=== PATIENT | male | born 2000 | race Caucasian/White ===

== ENCOUNTER 2020-10-15 07:35 | Inpatient (IN) ==
[2020-10-15] MEDS ORDERED: *HR* LORazepam 1 MG TABLET PO ONE (07:38)
[2020-10-15 08:31] LABS: Basophils # 0.1 K/mcL (0.0-0.2); Basophils % 0.3 %; Hematocrit 49.2 % (37.5-50.1); Hemoglobin 16.7 g/dL (12.9-16.9); Immature Granulocytes % 0.3 % (0-4); Lymphocytes # 1.3 K/mcL (0.6-4.6); Lymphocytes % 8.3 %; Mean Corpuscular HGB Conc 33.9 g/dL (31.6-35.5); Mean Corpuscular Hemoglobin 30.9 pg (28.0-33.3); Mean Corpuscular Volume 91.1 fL (83.0-100.0); Mean Platelet Volume 9.5 fL (9.4-12.4); Monocytes # 1.5 K/mcL (0.0-1.3); Monocytes % 9.5 %; Neutrophils # 12.8 K/mcL (1.6-8.9); Platelet Count 215 K/mcL (140-400); Segmented Neutrophils % 81.6 %; White Blood Count 15.7 K/mcL (4.3-11.1)
[2020-10-15 08:47] LABS: Amphetamine Screen,Urine Positive ng/mL (Cutoff=1000); Barbiturate Screen,Urine Negative ng/mL (Cutoff=200); Benzodiazepines Screen,Urine Negative ng/mL (Cutoff=200); Cannabinoid Screen,Urine Positive ng/mL (Cutoff = 50); Cocaine Screen,Urine Negative ng/mL (Cutoff= 300); Opiate Screen,Urine Negative ng/mL (Cutoff=300); Phencyclidine Screen,Urine Negative ng/mL (Cutoff=25)
[2020-10-15 08:50] LABS: Acetaminophen < 10 mcg/mL (10-20); BUN/Creatinine Ratio 8 (6-26); Blood Urea Nitrogen 8 mg/dL (6-20); Calcium 9.9 mg/dL (8.6-10.3); Carbon Dioxide 25 mEq/L (23-29); Chloride 102 mEq/L (98-107); Chol/HDL Ratio 2.1 (0-4.9); Cholesterol 133 mg/dL (< 200); Ethanol < 10 mg/dL (Less than 10); Glucose 98 mg/dL (70-105); HDL Cholesterol 62 mg/dL (40-59); LDL Cholesterol,Calculated 59 mg/dL (< 100); Osmolality,Calculated 282 (280-300); Potassium 3.3 mEq/L (3.5-5.1); Salicylate < 2.5 mg/dL (15.0-30.0); Sodium 137 mEq/L (136-145); Triglycerides 58 mg/dL (< 150); eGFR For African Americans > 60 (> 60); eGFR For Non-African Americans > 60 (> 60)
[2020-10-15 09:14] LABS: Bilirubin,Urine Negative (Negative); Blood,Urine Small (Negative); Clarity,Urine Turbid (Clear); Color,Urine Light-Orange (Yellow); Glucose,Urine (UA) Normal (Normal); Granular Casts,Urine Moderate per lpf (None Seen); Hyaline Casts,Urine Many per lpf (None Seen); Ketones,Urine 10 mg/dL (Negative); Leukocyte Esterase,Urine Negative (Negative); Mucus,Urine Few per lpf (None-Few); Nitrite,Urine Negative (Negative); PH,Urine 6.5 pH Units (5.0-8.0); Protein,Urine 70 mg/dL (Neg-Trace); Renal Epithelial Cells,Urine Few per hpf (None-Few); Specific Gravity,Urine 1.027 (1.010-1.025); White Blood Cell Casts,Urine Few per lpf (None Seen)
[2020-10-15] MEDS ORDERED: *HR* LORazepam 2 MG/ML VIAL IVP ONE (09:25)
[2020-10-15] MEDS ORDERED: *HR* LORazepam 2 MG/ML VIAL ONE (09:27)
[2020-10-15] MEDS ORDERED: Ziprasidone 10 MG in Water for inj. (sterile) 0.5 ML IM ONE (09:30)
[2020-10-15] MEDS ORDERED: *HR* LORazepam 2 MG/ML VIAL IM STA (09:30)
[2020-10-15] MEDS ORDERED: *HR* Midazolam HCl 5 MG/ML VIAL IM ONE (10:09)
[2020-10-15] MEDS ORDERED: *HR* Midazolam HCl 2 MG/2 ML VIAL ONE (10:14)
[2020-10-15] MEDS ORDERED: OLANZapine 10 MG VIAL IM ONE ×3 (10:14→16:30)
[2020-10-15] MEDS ORDERED: Water for inj. (sterile) 0 ML ONE (10:22)
[2020-10-15 10:24] LABS: Estimated Average Glucose 108 mg/dl; Hemoglobin A1C 5.4 %
[2020-10-15] MEDS ORDERED: Ondansetron ODT 4 MG TAB.RAPDIS SL PRN (10:46)
[2020-10-15] MEDS ORDERED: Acetaminophen 325 MG TABLET PO PRN (10:46)
[2020-10-15] MEDS ORDERED: *HR* LORazepam 2 MG/ML VIAL IM PRN (10:48)
[2020-10-15 11:13] LABS: Alanine Aminotransferase 19 Units/L (7-52); Albumin 4.7 g/dL (3.5-5.7); Albumin/Globulin Ratio 1.9 (1.1-2.2); Alkaline Phosphatase 54 Units/L (34-104); Aspartate Amino Transferase 18 Units/L (13-39); Bilirubin,Direct 0.3 mg/dL (0.0-0.2); Bilirubin,Total 1.3 mg/dL (0.3-1.0); Globulin 2.5 g/dL (2.4-3.5); Total Protein 7.2 g/dL (6.4-8.9)
[2020-10-15] MEDS ORDERED: OLANZapine 5 MG TAB.RAPDIS PO STA (13:25)
[2020-10-15] MEDS ORDERED: Ringers Solution, Lactated 1,000 ML IVC ONE (13:27)
[2020-10-15] MEDS ORDERED: OLANZapine 10 MG VIAL IM PRN (13:50)
[2020-10-16] MEDS: OLANZapine 5 MG TAB.RAPDIS PO SCH ×2 (00:47→19:43)
[2020-10-16] MEDS ORDERED: diazePAM 10 MG/2 ML SYRINGE IVP ONE (01:02)
[2020-10-16] MEDS ORDERED: 0.9 % Sodium Chloride 1,000 ML IVC SCH (02:00)
[2020-10-16] MEDS: *HR* Enoxaparin 40 MG/0.4 ML SYRINGE SQ SCH (05:13)
[2020-10-16 10:04] LABS: Basophils # 0.1 K/mcL (0.0-0.2); Basophils % 0.6 %; Eosinophils % 0.2 %; Hematocrit 49.7 % (37.5-50.1); Hemoglobin 16.3 g/dL (12.9-16.9); Immature Granulocytes % 0.2 % (0-4); Lymphocytes # 1.7 K/mcL (0.6-4.6); Lymphocytes % 15.5 %; Mean Corpuscular HGB Conc 32.8 g/dL (31.6-35.5); Mean Corpuscular Hemoglobin 31.4 pg (28.0-33.3); Mean Corpuscular Volume 95.8 fL (83.0-100.0); Mean Platelet Volume 9.8 fL (9.4-12.4); Monocytes # 0.7 K/mcL (0.0-1.3); Neutrophils # 8.5 K/mcL (1.6-8.9); Platelet Count 193 K/mcL (140-400); Red Blood Count 5.19 M/mcL (4.19-5.50); Segmented Neutrophils % 77.5 %; White Blood Count 10.9 K/mcL (4.3-11.1)
[2020-10-16 11:33] LABS: BUN/Creatinine Ratio 10 (6-26); Blood Urea Nitrogen 9 mg/dL (6-20); Calcium 9.2 mg/dL (8.6-10.3); Carbon Dioxide 20 mEq/L (23-29); Chloride 102 mEq/L (98-107); Creatine Kinase 1944 Units/L (30-223); Glucose 103 mg/dL (70-105); Magnesium 2.1 mg/dL (1.6-2.6); Osmolality,Calculated 283 (280-300); Phosphorous 3.6 mg/dL (2.7-4.5); Potassium 3.6 mEq/L (3.5-5.1); Sodium 137 mEq/L (136-145); eGFR For African Americans > 60 (> 60); eGFR For Non-African Americans > 60 (> 60)
[2020-10-16] MEDS: 0.9 % Sodium Chloride 1,000 ML IVC SCH ×2 (12:50→19:54)
[2020-10-16] MEDS: *HR* LORazepam 1 MG TABLET PO SCH (20:04)
[2020-10-17] MEDS: 0.9 % Sodium Chloride 1,000 ML IVC SCH ×4 (03:03→23:57)
[2020-10-17] MEDS: *HR* Enoxaparin 40 MG/0.4 ML SYRINGE SQ SCH (05:39)
[2020-10-17 09:05] LABS: Basophils # 0.1 K/mcL (0.0-0.2); Basophils % 0.9 %; Eosinophils % 0.6 %; Hematocrit 44.7 % (37.5-50.1); Immature Granulocytes % 0.1 % (0-4); Lymphocytes # 2.1 K/mcL (0.6-4.6); Lymphocytes % 30.4 %; Mean Corpuscular Hemoglobin 30.2 pg (28.0-33.3); Mean Corpuscular Volume 94.3 fL (83.0-100.0); Mean Platelet Volume 9.7 fL (9.4-12.4); Monocytes # 0.7 K/mcL (0.0-1.3); Monocytes % 9.3 %; Neutrophils # 4.1 K/mcL (1.6-8.9); Platelet Count 175 K/mcL (140-400); Red Blood Count 4.74 M/mcL (4.19-5.50); Red Cell Distribution Width 13.9 % (11.5-14.5); Segmented Neutrophils % 58.7 %
[2020-10-17 09:06] LABS: Hemoglobin 14.3 g/dL (12.9-16.9)
[2020-10-17] MEDS: *HR* LORazepam 1 MG TABLET PO SCH ×2 (09:15→20:39)
[2020-10-17 09:18] LABS: Alanine Aminotransferase 20 Units/L (7-52); Albumin 3.7 g/dL (3.5-5.7); Albumin/Globulin Ratio 1.8 (1.1-2.2); Alkaline Phosphatase 43 Units/L (34-104); Aspartate Amino Transferase 27 Units/L (13-39); BUN/Creatinine Ratio 6 (6-26); Bilirubin,Total 0.9 mg/dL (0.3-1.0); Blood Urea Nitrogen 5 mg/dL (6-20); Calcium 8.6 mg/dL (8.6-10.3); Carbon Dioxide 24 mEq/L (23-29); Chloride 107 mEq/L (98-107); Globulin 2.1 g/dL (2.4-3.5); Glucose 91 mg/dL (70-105); Osmolality,Calculated 283 (280-300); Potassium 3.8 mEq/L (3.5-5.1); Sodium 138 mEq/L (136-145); Total Protein 5.8 g/dL (6.4-8.9); eGFR For African Americans > 60 (> 60); eGFR For Non-African Americans > 60 (> 60)
[2020-10-17 10:04] LABS: Creatine Kinase 1126 Units/L (30-223); Magnesium 1.9 mg/dL (1.6-2.6); Phosphorous 3.3 mg/dL (2.7-4.5)
[2020-10-17] MEDS: OLANZapine 5 MG TAB.RAPDIS PO SCH (20:39)
[2020-10-18 04:51] LABS: Hematocrit 46.1 % (37.5-50.1); Hemoglobin 14.8 g/dL (12.9-16.9); Mean Corpuscular HGB Conc 32.1 g/dL (31.6-35.5); Mean Corpuscular Hemoglobin 30.6 pg (28.0-33.3); Mean Corpuscular Volume 95.2 fL (83.0-100.0); Platelet Count 198 K/mcL (140-400); Red Blood Count 4.84 M/mcL (4.19-5.50); Red Cell Distribution Width 13.8 % (11.5-14.5); White Blood Count 7.1 K/mcL (4.3-11.1)
[2020-10-18 05:11] LABS: BUN/Creatinine Ratio 6 (6-26); Blood Urea Nitrogen 4 mg/dL (6-20); Calcium 8.6 mg/dL (8.6-10.3); Carbon Dioxide 25 mEq/L (23-29); Chloride 109 mEq/L (98-107); Creatine Kinase 763 Units/L (30-223); Glucose 86 mg/dL (70-105); Osmolality,Calculated 284 (280-300); Potassium 3.9 mEq/L (3.5-5.1); Sodium 139 mEq/L (136-145); eGFR For African Americans > 60 (> 60); eGFR For Non-African Americans > 60 (> 60)
[2020-10-18] MEDS: *HR* Enoxaparin 40 MG/0.4 ML SYRINGE SQ SCH (05:43)
[2020-10-18] MEDS: 0.9 % Sodium Chloride 1,000 ML IVC SCH ×2 (05:44→20:52)
[2020-10-18] MEDS: *HR* LORazepam 1 MG TABLET PO SCH ×2 (08:33→20:52)
[2020-10-18] MEDS: OLANZapine 5 MG TAB.RAPDIS PO SCH (20:54)
[2020-10-19] MEDS: 0.9 % Sodium Chloride 1,000 ML IVC SCH ×5 (03:35→17:06)
[2020-10-19] MEDS: *HR* Enoxaparin 40 MG/0.4 ML SYRINGE SQ SCH (05:37)
[2020-10-19] MEDS: *HR* LORazepam 1 MG TABLET PO SCH ×2 (07:41→20:36)
[2020-10-19 18:03] LABS: Hematocrit 47.4 % (37.5-50.1); Hemoglobin 15.9 g/dL (12.9-16.9); Mean Corpuscular HGB Conc 33.5 g/dL (31.6-35.5); Mean Corpuscular Hemoglobin 31.2 pg (28.0-33.3); Mean Corpuscular Volume 92.9 fL (83.0-100.0); Mean Platelet Volume 10.1 fL (9.4-12.4); Platelet Count 209 K/mcL (140-400); Red Cell Distribution Width 13.4 % (11.5-14.5); White Blood Count 6.6 K/mcL (4.3-11.1)
[2020-10-19 18:25] LABS: Alanine Aminotransferase 25 Units/L (7-52); Albumin 4.2 g/dL (3.5-5.7); Albumin/Globulin Ratio 1.8 (1.1-2.2); Alkaline Phosphatase 47 Units/L (34-104); Aspartate Amino Transferase 24 Units/L (13-39); BUN/Creatinine Ratio 7 (6-26); Bilirubin,Total 0.8 mg/dL (0.3-1.0); Blood Urea Nitrogen 5 mg/dL (6-20); Calcium 9.1 mg/dL (8.6-10.3); Carbon Dioxide 23 mEq/L (23-29); Chloride 105 mEq/L (98-107); Globulin 2.4 g/dL (2.4-3.5); Glucose 101 mg/dL (70-105); Osmolality,Calculated 283 (280-300); Potassium 3.8 mEq/L (3.5-5.1); Sodium 138 mEq/L (136-145); Total Protein 6.6 g/dL (6.4-8.9); eGFR For African Americans > 60 (> 60); eGFR For Non-African Americans > 60 (> 60)
[2020-10-19] MEDS: OLANZapine 5 MG TAB.RAPDIS PO SCH (20:36)
[2020-10-20] MEDS: 0.9 % Sodium Chloride 1,000 ML IVC SCH ×2 (00:06→07:25)
[2020-10-20] MEDS: *HR* Enoxaparin 40 MG/0.4 ML SYRINGE SQ SCH (04:59)
[2020-10-20 06:45] LABS: Hemoglobin 14.9 g/dL (12.9-16.9); Mean Corpuscular HGB Conc 33.9 g/dL (31.6-35.5); Mean Corpuscular Hemoglobin 31.2 pg (28.0-33.3); Mean Corpuscular Volume 92.1 fL (83.0-100.0); Mean Platelet Volume 9.9 fL (9.4-12.4); Platelet Count 192 K/mcL (140-400); Red Blood Count 4.78 M/mcL (4.19-5.50); Red Cell Distribution Width 13.5 % (11.5-14.5); White Blood Count 7.2 K/mcL (4.3-11.1)
[2020-10-20 07:08] LABS: Alanine Aminotransferase 21 Units/L (7-52); Albumin 3.8 g/dL (3.5-5.7); Albumin/Globulin Ratio 1.8 (1.1-2.2); Alkaline Phosphatase 38 Units/L (34-104); Aspartate Amino Transferase 19 Units/L (13-39); BUN/Creatinine Ratio 8 (6-26); Bilirubin,Total 0.7 mg/dL (0.3-1.0); Blood Urea Nitrogen 6 mg/dL (6-20); Calcium 8.9 mg/dL (8.6-10.3); Carbon Dioxide 25 mEq/L (23-29); Chloride 106 mEq/L (98-107); Creatine Kinase 606 Units/L (30-223); Globulin 2.1 g/dL (2.4-3.5); Glucose 86 mg/dL (70-105); Osmolality,Calculated 285 (280-300); Potassium 3.6 mEq/L (3.5-5.1); Sodium 139 mEq/L (136-145); Total Protein 5.9 g/dL (6.4-8.9); eGFR For African Americans > 60 (> 60); eGFR For Non-African Americans > 60 (> 60)
[2020-10-20] MEDS: *HR* LORazepam 1 MG TABLET PO SCH (07:21)
[2020-10-20 15:28] VITALS: BP 151/86
== END 2020-10-20 16:35 | disposition left against medical advice (07) | DRG 817 ==
LOC: 3BNU 07:35 → EMEROOARM 07:35 → 3BNU 13:00 → SUATTDRO 17:47
PROVIDERS: ADMIT Internal Medicine; ATTEND Internal Medicine